=== PATIENT | female | born 1980 | race Caucasian/White ===

== ENCOUNTER 2016-12-14 12:20 | Observation (INO) | payer BC ==
[2016-12-14 12:59] LABS: % IMMATURE GRANULYOCYTES 1.4 % (0.0-1.1); ADD DIFF? NO; ADD MORPH? NO; ADD SCAN? NO; ATYPICAL LYMPHOCYTE FLAG 80 (0-99); FRAGMENT RBC FLAG 0 (0-99); HEMATOCRIT 34.1 % (38.0-47.0); HEMOGLOBIN 11.7 g/dL (12.6-16.3); LEFT SHIFT FLG 10 (0-99); LIPEMIA HEMOLYSIS FLAG 90 (0-99); MEAN CELL HEMOGLOBIN 33.2 pg (27.9-34.1); MEAN CELL HEMOGLOBIN CONCENTR. 34.3 g/dL (32.4-36.7); MEAN CELL VOLUME 96.9 fL (81.5-99.8); MEAN PLATELET VOLUME 11.1 fL (8.7-11.7); PLATELET CLUMPS FLAG 30 (0-99); PLATELET COUNT 183 10^3/uL (150-400); RED BLOOD CELL COUNT 3.52 10^6/uL (4.18-5.33); RED CELL DISTRIBUTION WIDTH 13.6 % (11.5-15.2)
[2016-12-14] MEDS ORDERED: D5W LR 1,000 ML IV SCH (13:00)
[2016-12-14] MEDS ORDERED: LR 1,000 ML IV ONE (13:00)
[2016-12-14 13:21] LABS: ALANINE AMINOTRANSFERASE 50 IU/L (9-52); ALBUMIN 3.4 g/dL (3.5-5.0); ALKALINE PHOSPHATASE 98 IU/L (38-126); ANION GAP 10 mEq/L (8-16); ASPARTATE AMINOTRANSFERASE 50 IU/L (14-46); BILIRUBIN,TOTAL 0.9 mg/dL (0.1-1.4); CARBON DIOXIDE 18 mEq/l (22-31); CHLORIDE 108 mEq/L (97-110); CREATININE 0.5 mg/dL (0.6-1.0); GLOMERULAR FILTRATION RATE > 60; GLUCOSE 79 mg/dL (70-100); POTASSIUM 3.5 mEq/L (3.5-5.2); SODIUM 136 mEq/L (134-144); TOTAL PROTEIN 6.3 g/dL (6.3-8.2)
[2016-12-14] MEDS ORDERED: ONDANSETRON 4 MG/2 ML VIAL IVP PRN (13:59)
[2016-12-14] MEDS ORDERED: LOPERAMIDE HCL 2 MG CAP PO PRN (13:59)
[2016-12-14 14:12] LABS: COLOR YELLOW; LEUKOCYTE ESTERASE,URINE NEGATIVE (NEGATIVE); NITRITE,URINE NEGATIVE (NEGATIVE)
== END 2016-12-14 16:16 | disposition home or self-care (01) ==
LOC: FLD 12:20
PROVIDERS: ADMIT Obstetrics & Gynecology; ATTEND Obstetrics & Gynecology
DX: O99.89 Other specified diseases and conditions complicating pregnancy, childbirth and the puerperium (principal); Z3A.35 35 weeks gestation of pregnancy
CPT/HCPCS: G0378 ×2; J2405

== ENCOUNTER 2017-01-18 00:03 | Inpatient (IN) | payer BC ==
[2017-01-18] MEDS ORDERED: EPSOM SALT 454 GM TP PRN ×2 (00:10→06:17)
[2017-01-18] MEDS ORDERED: TERBUTALINE SULFATE 1 MG/ML VIAL IV PRN ×2 (00:10→06:17)
[2017-01-18] MEDS ORDERED: LR 1,000 ML IV PRN ×2 (00:10→06:17)
[2017-01-18] MEDS ORDERED: OXYTOCIN/RINGERS LACTATE 1,000 ML IV PRN ×2 (00:10→06:17)
[2017-01-18] MEDS ORDERED: OLIVE OIL 118 ML BTL MISC PRN ×2 (00:10→06:17)
[2017-01-18] MEDS ORDERED: IBUPROFEN 600 MG TAB PO PRN (00:10)
[2017-01-18] MEDS ORDERED: OXYTOCIN/LR *STANDARD DOSE PROTOCOL IV SCH (07:00)
[2017-01-18] MEDS ORDERED: LIDOCAINE 1% 300 MG/30 ML SDV ONE (07:51)
[2017-01-18] MEDS ORDERED: OLIVE OIL 118 ML BTL ONE (07:52)
[2017-01-18] MEDS ORDERED: TERBUTALINE SULFATE 1 MG/ML VIAL ONE (07:52)
[2017-01-18] MEDS ORDERED: AMMONIA AROMATIC 1 EACH AMP IH ONE (07:52)
[2017-01-18] MEDS ORDERED: MISOPROSTOL 200 MCG TAB ONE (07:53)
[2017-01-18] MEDS ORDERED: OXYTOCIN 10 UNIT/ML VIAL ONE (07:53)
[2017-01-18] MEDS: CALCIUM CARBONATE 500 MG CHEWABLE TAB PO PRN ×2 (07:59→10:55)
--- NOTE | 2017-01-18 08:38 | GHP ---
[f rep st] PREOP HISTORY AND PHYSICAL DATE OF ADMISSION: 01/18/2017 ADMITTING DIAGNOSIS: Intrauterine at 40 and 4/7th weeks' gestation for elective induction of labor. HISTORY OF PRESENT ILLNESS: The patient is a 36-year-old, 4, para 1-0-2-1, with a last mens trual period of 04/09/2016 and an EDC of 01/14/2017, confirmed by a 6 week ultrasound. She has had good care at [facility] since registration at 6 weeks gestation and has had a rel atively uncomplicated course. Her risk factors are advanced maternal age. She scott d normal genetic testing with a negative Verifi, negative AFP, and negative ultrasounds. She has a history of IBS with no issues in this . She was diagnosed with pyelonephritis in May of 2016. She was treated and has been on prophylactic antibiotics since. Has done fine. She also has a decreased BMI. The patient has had irregular contractions this morning but has no leakage of fluid, vaginal bleeding, and has had good movement. She has no other complaints. Negative to olaf review of systems and she desires induction of labor. PAST OB HISTORY: In October of 2011, she had a spontaneous . In July of 2012, she had an e ctopic and was treated with a left salpingostomy. In November of 2014, she had a spontaneous vaginal delivery of a viable male, 8 pounds 1 ounce, induction of labor at 40 and 6/7th weeks. She had a 3.5 hour 2nd stage and this is her 4th . PAST MEDICAL HISTORY: Just a history of IBS and the pyelonephritis. PAST SURGICAL HISTORY: She had a history of a laparoscopy and treatment of a left ectopic . PAST GYNECOLOGICAL HISTORY: She has a normal menstrual triad. Menarche at age 16. Interval: Ever y 28 days, 4 days of flow. She has a history of the SAB and the ectopic . She also has scott d an abnormal Pap treated with cryo in college. ALLERGIES: Amoxicillin. MEDICATIONS: vitamins, DHA and Macrobid. LABS: O positive, antibody negative, RPR nonreactive, rubella immune, hepatitis negative, HIV negat jaylen. Cystic fibrosis, SMA, fragile X were all negative in 2013. She is immune to parvovirus. Pap was normal. Gonorrhea and chlamydia negative. Verifi negative. AFP negative. A 1 hour GTT 111. GBS is negative. SOCIAL HISTORY: She is . She lives with her , Mitesh, and her son. She works as a realtor. She denies tobacco, alcohol or drug use. FAMILY HISTORY: Mother has chronic hypertension. Her sister has asthma. Mother has lymphoma. Mat an grandmother and paternal grandfather had pancreatic cancer. Paternal aunt and an uncle have l [place] cancer. OBJECTIVE: VITAL SIGNS: Today she is afebrile. Vital signs are stable. heart tones are in the 140s, reactive, moderate variability, category 1. She is luisa irregularly. Her cervix i s 3-4, 80% -2. Cervix is soft and cephalic. ASSESSMENT AND PLAN: A 36-year-old, 4, para 1-0-2-1 at 40 and 4/7th weeks' gestation for el ective induction of labor. Patient is started on Pitocin. We will increase the dose to achieve luis quate contractions. Patient will desire an epidural prior to artificial rupture of membranes. /[id number]/MODL
[2017-01-18 09:20] LABS: ABSOLUTE IMMATURE GRANULOCYTES 0.11 10^3/uL (0.00-0.10); ADD DIFF? NO; ADD MORPH? NO; ADD SCAN? NO; ATYPICAL LYMPHOCYTE FLAG 20 (0-99); FRAGMENT RBC FLAG 0 (0-99); HEMATOCRIT 35.7 % (38.0-47.0); LEFT SHIFT FLG 0 (0-99); LIPEMIA HEMOLYSIS FLAG 80 (0-99); MEAN CELL HEMOGLOBIN 33.4 pg (27.9-34.1); MEAN CELL HEMOGLOBIN CONCENTR. 33.6 g/dL (32.4-36.7); MEAN CELL VOLUME 99.4 fL (81.5-99.8); MEAN PLATELET VOLUME 11.7 fL (8.7-11.7); PLATELET CLUMPS FLAG 0 (0-99); PLATELET COUNT 183 10^3/uL (150-400); RED BLOOD CELL COUNT 3.59 10^6/uL (4.18-5.33); RED CELL DISTRIBUTION WIDTH 13.7 % (11.5-15.2)
[2017-01-18] MEDS ORDERED: BUPIVACAINE 0.25% 30 ML SDV ONE ×2 (11:19→17:46)
[2017-01-18] MEDS ORDERED: PHENYLEPHRINE HCL 100 MCG/ML SYR ONE (11:19)
[2017-01-18] MEDS ORDERED: fentanYL 4MCG/ML/BUP 0.0625% RTU 250 ML BAG EP ONE (11:20)
--- NOTE | 2017-01-18 12:44 | PREANESOB ---
Obstetric Pre-Anesthesia Info - General Info Proposed Procedure: EMANI : 4 Para: 1 - Info Status: Full Term (Induction for post dates and advance maternal age) - Labor Status Pitocin: In Use Indications for Labor Analgesia: Augmentation of Labor, Pain Control Anesthesia Allergies/Adverse Reactions: Allergy/AdvReac Type Severity Reaction Status Date / Time amoxicillin Allergy Hives Verified 12/11/14 06:46 Penicillins Allergy Hives Verified 12/11/14 06:46 Home Medications: Medication Instructions Recorded Ferosul 1 tab PO DAILY 12/09/14 1 tab PO DAILY 12/09/14 Ranitidine HCl [Zantac] 1 tab PO PRN PRN 12/11/14 Visit Medications: Generic Name Dose Route Start Last Admin Trade Name Freq PRN Reason Stop Dose Admin Calcium Carbonate 500 - 1,000 mg 01/18/17 07:40 01/18/17 10:55 Tums PO 07/17/17 07:39 1,000 mg Q4HRS PRN Administration Dyspepsia Lactated Ringer's 1,000 mls @ 0 mls/hr 01/18/17 06:17 01/18/17 08:26 Lr IV 07/17/17 00:09 1,000 mls PRN PRN Administration SEE PROTOCOL CONDITIONS Protocol Per Protocol Oxytocin/Lactated Ringer's 1,000 mls @ 150 mls/hr 01/18/17 06:17 Pitocin 20 Units/Lr (Premix) IV PRN PRN Post- bleeding Oxytocin/Lactated Ringer's 500 mls @ 0 mls/hr 01/18/17 07:00 01/18/17 08:30 Pitocin 30 Units/Lr (Premix) IV 07/17/17 06:59 500 mls CONT WILLIAM Administration Protocol Per Protocol Ibuprofen 600 mg 01/18/17 06:17 Motrin PO 07/17/17 00:09 Q6HRS PRN post , inflammation Magnesium Sulfate 454 gm 01/18/17 06:17 Epsom Salt TP 07/17/17 00:09 Q1H PRN perineal discomfort [place] Oil 118 ml 01/18/17 06:17 Sweet Oil MISC 07/17/17 00:09 ONCE PRN preneal massage Terbutaline Sulfate 0.25 mg 01/18/17 06:17 Brethine IV 07/17/17 00:09 ONCE PRN Tachysystole Discontinued Medications Generic Name Dose Route Start Last Admin Trade Name Jose PRN Reason Stop Dose Admin Ammonia (Aromatic Spirit) Confirm 01/18/17 07:52 Ammonia Aromatic Administered 01/18/17 07:53 Dose 1 each IH .STK-MED ONE Bupivacaine HCl Confirm 01/18/17 11:19 Sensorcaine 0.25% Sdv Administered 01/18/17 11:20 Dose 30 ml .ROUTE .STK-MED ONE Ephedrine Sulfate Confirm 01/18/17 07:52 Ephedrine Sulfate Administered 01/18/17 07:53 Dose 50 mg .ROUTE .STK-MED ONE Fentanyl/Bupivacaine HCl Confirm 01/18/17 11:20 Fentanyl/Bupivacaine/Ns 4 Mcg/Ml 0.0625%(Rtu) Administered 01/18/17 11:21 Dose 250 ml EP .STK-MED ONE Lactated Ringer's 1,000 mls @ 0 mls/hr 01/18/17 00:10 Lr IV 07/17/17 00:09 PRN PRN SEE PROTOCOL CONDITIONS Protocol Per Protocol Oxytocin/Lactated Ringer's 1,000 mls @ 150 mls/hr 01/18/17 00:10 Pitocin 20 Units/Lr (Premix) IV PRN PRN Post- bleeding Ibuprofen 600 mg 01/18/17 00:10 Motrin PO 07/17/17 00:09 Q6HRS PRN post , inflammation Lidocaine HCl Confirm 01/18/17 07:51 Lidocaine Hcl 1% Administered 01/18/17 07:52 Dose 300 mg .ROUTE .STK-MED ONE Magnesium Sulfate 454 gm 01/18/17 00:10 Epsom Salt TP 07/17/17 00:09 Q1H PRN perineal discomfort Misoprostol Confirm 01/18/17 07:53 Cytotec Administered 01/18/17 07:54 Dose 800 mcg .ROUTE .STK-MED ONE [place] Oil 118 ml 01/18/17 00:10 Sweet Oil MISC 07/17/17 00:09 ONCE PRN preneal massage [place] Oil Confirm 01/18/17 07:52 Sweet Oil Administered 01/18/17 07:53 Dose 118 ml .ROUTE .STK-MED ONE Oxytocin Confirm 01/18/17 07:53 Pitocin Administered 01/18/17 07:54 Dose 40 unit .ROUTE .STK-MED ONE Phenylephrine HCl Confirm 01/18/17 11:19 Neosynephrine Administered 01/18/17 11:20 Dose 1,000 mcg .ROUTE .STK-MED ONE Sufentanil Citrate Confirm 01/18/17 11:18 Sufenta Administered 01/18/17 11:19 Dose 50 mcg .ROUTE .STK-MED ONE Terbutaline Sulfate 0.25 mg 01/18/17 00:10 Brethine IV 07/17/17 00:09 ONCE PRN Tachysystole Terbutaline Sulfate Confirm 01/18/17 07:52 Brethine Administered 01/18/17 07:53 Dose 1 mg .ROUTE .STK-MED ONE - Focused Exam Height/Weight (Nursing): Height 170.18 cm Weight 58.967 kg Labs: 01/18/17 07:30 Patient ABO/Rh O POSITIVE 01/18/17 07:30
--- NOTE | 2017-01-18 12:58 | OBPROG ---
OBG Labor Progress Note Assessment/Plan: Assessment: 36 y/o @ 40 4/7 weeks for elective IOL. Plan: AROM now for clear fluid. Continue pitocin to achieve adequate contractions. status reassuring. 01/18/17 12:56 Subjective: Pt is now comfortable with her epidural. Objective: 01/18/17 07:30 Patient ABO/Rh O POSITIVE 01/18/17 07:30 - SVE Dilation (cm): 4 Effacement (%): 80 Station: -2 [place] Current Contraction Pattern: Irregular FHR (bpm): 130 FHR Pattern Variability: Moderate FHR Category: 1 Membranes: AROM Amniotic Fluid Color: Clear Oxytocin Orders Assessment - Pre-Induction/Augmentation Assessment Gestational Age: 40 week(s) and 4 day(s) ICD10 Worksheet Patient Problems: Problems Problem Status Onset Vacuum extractor delivery, delivered Acute
[2017-01-18] MEDS ORDERED: LR 500 ML IV SCH (13:00)
[2017-01-18] MEDS ORDERED: fentaNYL 100 MCG/2 ML INJ ONE (17:46)
[2017-01-18] MEDS ORDERED: SIMETHICONE 80 MG TAB CHEW PO PRN (19:30)
[2017-01-18] MEDS ORDERED: HYDROCORTISONE 0.5% CREAM TP PRN (19:30)
[2017-01-18] MEDS ORDERED: DOCUSATE SODIUM 100 MG CAP PO PRN (19:30)
--- NOTE | 2017-01-18 19:36 | OBDEL ---
Info Type: Vaginal GBS+: No Indications for Delivery: Elective Vaginal Delivery - Labor and Delivery Onset of Contractions Date: 01/18/17 Onset of Contractions Time: 11:45 Onset of Contractions Type: Induced Rupture of Membranes Date: 01/18/17 Rupture of Membranes Time: 13:00 Rupture of Membranes Type: Artificial Amniotic Fluid Color: Clear Dilation Complete Date: 01/18/17 Dilation Complete Time: 14:28 Placenta Delivery Date: 01/18/17 Placenta Delivery Time: 19:11 Total Hours of Labor: 7 Non-surgical Procedures: Amniotomy Laceration: 2nd Degree Repair: 2-0, Vicryl Vaginal Sponge Count Correct: Yes Vaginal Needle Count Correct: Yes Vaginal Sweep Performed: Yes EBL: 150 Delivery Events: Other (Specify) (prolonged second stage, attempted vacuum assist, finally patient delivered spontaneously) - Medications Labor Augmentation/Induction Methods Used: Pitocin Labor Augmentation/Induction Indication: Post Dates, Elective Assissted Delivery Assisted Delivery Type: Vacuum Station: +2 Pop offs (Total): 5 Pulls (Total): 7 Assisted Delivery Comment: Difficulty achieving adequate suction with several vacuum devices. Tried flat x 2 and then abbasi x1. Finally abandoned vacuum assist and because status remained reassuring allowed patient to continue to push spontaneously. We dosed her epidural, allowed her to rest and labor down and then she pushed successfully. Data [place]gett Delivery Date: 01/18/17 Delivery Time: 19:07 GIANFRANCO: 01/14/17 Gestational Age: 40 week(s) and 4 day(s) Sex of Infant: Female Score (1 Min): 9 Score (5 Min): 9 ICD10 Worksheet Patient Problems: Problems Problem Status Onset Vacuum extractor delivery, delivered Acute
[2017-01-18] MEDS: IBUPROFEN 600 MG TAB PO PRN (20:13)
[2017-01-18] MEDS ORDERED: ACETAMINOPHEN 500 MG TAB PO ONE (21:45)
[2017-01-18] MEDS ORDERED: ceFAZolin 2 GM/DEXTROSE 100 ML IV ONE (21:45)
[2017-01-19] MEDS: IBUPROFEN 600 MG TAB PO PRN ×4 (01:47→20:45)
[2017-01-19 02:36] VITALS: O2SAT 95
[2017-01-19 15:50] VITALS: RESP 16
[2017-01-19] MEDS: ACETAMINOPHEN 325 MG TAB PO PRN ×2 (16:17→20:45)
--- NOTE | 2017-01-19 19:11 | OBPP ---
Progress Note Assessment/Plan: Assessment: PPD 1 s/p after protracted pushing Plan: routine care 01/19/17 19:08 Subjective: Pt doing well except sore bottom. using ice and ibu. moderate cramps. bleeding has slowed. baby is latching well. Objective: 01/18/17 07:30 Patient ABO/Rh O POSITIVE 01/18/17 07:30 Temp Pulse Resp BP Pulse Ox 36.6 C 82 16 120/74 95 01/19/17 08:00 01/19/17 08:00 01/19/17 08:00 01/19/17 08:00 01/19/17 01:45 Uterine Position/Fundal Height: Umbilicus -1 Uterine Tone: Firm Physical Exam - Physical Exam General Appearance: WD/WN, alert Abdomen: non-tender, soft, other (FF at umb -1) Extremities: non-tender, pedal edema (minimal) Skin: normal color, warm/dry Neuro/Psych: alert, normal mood/affect
[2017-01-20] MEDS: ACETAMINOPHEN 325 MG TAB PO PRN (01:16)
[2017-01-20] MEDS: IBUPROFEN 600 MG TAB PO PRN (06:16)
[2017-01-20] MEDS: HYDROCODONE/APAP 5/325 TAB PO PRN ×2 (06:16→08:31)
[2017-01-20 08:40] VITALS: BP 124/80; PULSE 74; TEMP 98.3
--- NOTE | 2017-01-20 08:45 | OBPP ---
Progress Note Assessment/Plan: Assessment: 1) s/p PPD #2 - pt is stable 2) Anemia - pt is asymptomatic Plan: Plan for d/c home later today Instructions reviewed with pt Rx given for Coila and Motrin Cont PNV Pelvic rest RTC in 4 and 6 weeks for pp visit 01/20/17 08:42 Subjective: Pt seen and examined. Doing well with no complaints. Moderate cramping, relief with [place]. Moderate lochia. Voiding without difficulty. Loose stools yesterday. BF without difficulty. Objective: 01/18/17 07:30 Patient ABO/Rh O POSITIVE 01/18/17 07:30 Temp Pulse Resp BP Pulse Ox 36.8 C 74 16 124/80 H 95 01/20/17 08:38 01/20/17 08:38 01/20/17 08:38 01/20/17 08:38 01/20/17 08:38 Uterine Position/Fundal Height: Umbilicus -2 Uterine Tone: Firm Physical Exam - Physical Exam General Appearance: WD/WN, alert, no apparent distress Respiratory: lungs clear, normal breath sounds Cardiac/Chest: regular rate, rhythm Abdomen: normal bowel sounds, non-tender, soft, flatus (+) Extremities: non-tender, normal inspection Skin: normal color, warm/dry Neuro/Psych: alert, normal mood/affect, oriented x 3
--- NOTE | 2017-01-20 08:49 | OBGCSDC ---
General Delivery Information - General Info : 4 Para: 2 Delivery Physician/CNM: Monica Loera Admission Date: 01/18/17 Labs: Patient ABO/Rh O POSITIVE 01/18/17 07:30 Hct 35.7 % (38.0-47.0) L 01/18/17 07:30 Vaginal - Diagnosis Labor: Induced Rupture of Membranes Type: Artificial Amniotic Fluid Color: Clear Laceration: 2nd Degree Repair: 2-0, Vicryl Delivery Events: Other (Specify) (prolonged second stage, attempted vacuum assist, finally patient delivered spontaneously) - Operations/Procedures Assisted Delivery Type: Vacuum Non-surgical Procedures: Amniotomy L&D Analgesia/Anesthesia Type: Epidural - Hospital Course Antepartum: AMA - negative genetic testing. Pyelonephritis - prophylaxis 06/12. Intrapartum: Admit at 3-4/80/-2; Pitocin. Prolonged second stage of labor, vacuum applied with pop-offs and pt then delivered. : Uncomplicated. Moderate cramping-relief with [place]. Moderate lochia. BF without difficulty. Loose stools. - Delivery Non-surgical Procedures: Amniotomy L&D Analgesia/Anesthesia Type: Epidural Data [place]gett Delivery Date: 01/18/17 Delivery Time: 19:07 GIANFRANCO: 01/14/17 Gestational Age: 40 week(s) and 6 day(s) Sex of Infant: Female Weight (gm): 3430 g Score (1 Min): 9 Score (5 Min): 9 Discharge Information - Discharge Information Discharge Medications: Ibuprofen, Vitamins, Other (Specify) ([place]) Condition: Good Instruction/Follow Up: Four Weeks, Six Weeks Discharge Physician/CNM: Elizabeth Seaman
== END 2017-01-20 11:00 | disposition home or self-care (01) | DRG 775 ==
LOC: FLD 00:03 → UNDOADMIN 00:03 → FLD 06:10 → FOB 22:33
PROVIDERS: ADMIT Obstetrics & Gynecology; ATTEND Obstetrics & Gynecology
PROC: 10E0XZZ Delivery of Products of Conception, External Approach (ICD-10-PCS; principal; 2017-01-18)
PROC: 0KQM0ZZ Repair Perineum Muscle, Open Approach (ICD-10-PCS; principal; 2017-01-18)
PROC: 10907ZC Drainage of Amniotic Fluid, Therapeutic from Products of Conception, Via Natural or Artificial Opening (ICD-10-PCS; principal; 2017-01-18)
PROC: 3E033VJ Introduction of Other Hormone into Peripheral Vein, Percutaneous Approach (ICD-10-PCS; principal; 2017-01-18)
DX: O63.1 Prolonged second stage (of labor) (principal); O70.1 Second degree perineal laceration during delivery; O48.0 Post-term pregnancy; O09.523 Supervision of elderly multigravida, third trimester; Z3A.40 40 weeks gestation of pregnancy; Z37.0 Single live birth; Z68.1 Body mass index [BMI] 19.9 or less, adult; Z87.448 Personal history of other diseases of urinary system; Z88.0 Allergy status to penicillin
CPT/HCPCS: J0690; J2370; J2590; J3010; J3105